=== PATIENT | female | born 1995 | race Caucasian/White ===

== ENCOUNTER 2016-08-02 18:48 | Emergency (ER) | payer OTHER ==
[~2016-08-02] VITALS: Ht 154.9 cm; Wt 270.0 kg
[2016-08-02 19:09] VITALS: BP 146/102; PULSE 83; RESP 16; O2SAT 99
--- NOTE | 2016-08-02 19:57 | ED.REPORT ---
HPI-Back Pain Under 40 Date of Service Aug 02, 2016 ED Provider: Frank Manuel DO Patient is a 21 year old female with a history of chronic back pain who presents to the ED complaining of low back pain onset July 22. Patient reports that back pain is a recurrent issue for her and she denies recent injury or trauma to her back. She states that the pain was initially present on the right side of her back but is now most prominent in the center The patient was seen by her PCP on July 27, with normal urinalysis and pelvic exam at that time. She reports associated fatigue but denies numbness or tingling on her extremities, bowel or bladder incontinence, or any other pain. Nursing Notes Stated Complaint: LOWER BACK PAIN Chief Complaint: Back Pain or Injury Nursing Notes Reviewed: Yes Allergies: Coded Allergies: No Known Allergies (Unverified , 08/01/15) General Time Seen by MD: 19:56 Chief Complaint Back pain Hx Obtained From: Patient Arrived By: Walk-in Sudden in Onset?: No Onset Occurred: More than a week ago... (since July 22) Symptom Duration: Since onset Location: : Generalized Quality: Painful Severity: Maximum: Severe Recent Healthcare: No recent doctor visit, No recent hospitalization Similar Sx Previous: Yes Past Medical History Past Medical History chronic back pain Past Surgical History none reported Smoking History Unknown if Ever Smoker Social History none reported Other Social History: Good social support, Local resident Ambulatory Status Independent Review of Systems Constitutional: Reports: Fatigue Female: Denies: Incontinence Musculoskeletal: Reports: Back pain, Denies: Extremity pain Neurologic: Denies: Bladder dysfunction, Bowel dysfunction, Numbness, Weakness Complete sys rev & neg: except as marked. Physical Exam Initial Vital Signs Vital Signs (First) Date Time Temp Pulse Resp B/P Pulse Ox O2 Delivery O2 Flow Rate FiO2 08/02/16 19:09 36.8 83 16 146/102 99 Room Air Initial VS: Reviewed Neck: Supple, Non-tender, Full range of motion Abdomen / GI: Soft, Non-tender Extremities: Vascular intact, Neuro intact Skin: Warm, Dry, No cyanosis Psychiatric: Mood/affect normal, Behavior normal, Normal thought content General/Constitutional: Awake, Alert, No acute distress Appearance / Presentation: Positive: Obese Back: Atraumatic, Non-tender, No midline vertebral tend, No paraspinal tenderness Neurologic: Oriented X3, Speech NL, No motor deficits, No sensory deficits, Reflexes equal bilat Respiratory / Chest: No respiratory distress, No stridor Cardiovascular: Heart rate NL Interpretation & Diagnostics Interpretation & Diagnostics: Urine Dip: Negative Urine : Negative Lab Results Interpretation Test 08/02/16 20:28 Hold Urine Received (Received) X-Ray Interpretation Xray Interpretation: IMPRESSION: Source of pain is not seen. The lumbosacral spine appears normal for age. Dictated by: Ashkan Kidd M.D. on 08/02/2016 at 21:37 Approved by: Ashkan Kidd M.D. on 08/02/2016 at 21:38 Study Performed: XR Lumbar Spine Interpretation / Wet Read by: Interpret - Radiologist Re-Eval/Medical Decision Source of Hx: Old records Re-Evaluation/Progress #1: Time of Eval: 20:34 Patient Status: Condition improved Re-Evaluation/Progress Note: Rechecked the patient. Her urine was normal and she is not . She is frusterated because she continues to experience back pain. Will take x-rays, with plan for PCP to order an outpatient MRI. Re-Evaluation/Progress #2: Time of Eval: 21:47 Patient Status: Condition improved Re-Evaluation/Progress Note: X-rays were negative. Patient understands and agrees with the plan to be discharged home. Discharge instructions and follow-up discussed. All questions were addressed. Return to the ED warnings given. Counseled Regarding: Diagnosis, Need for follow-up, When/why to return to ED Discharge & Departure Impression: Primary Impression: Low back pain Chronicity: acute Back pain laterality: right Sciatica presence: with sciatica Sciatica laterality: sciatica of right side Qualified Code: M54.41 - Lumbago with sciatica, right side Disposition: Home All VS Reviewed: Yes Condition: Stable Patient Instructions: Lumbar Radiculopathy (ED), Acute Low Back Pain (ED) Additional Instructions: Take it easy for a few days. Do not lift more than 10 pounds for the next 3 days. Take Motrin 600 mg every 8 hours as needed for moderate pain. Take Percocet 1-2 every 6 hours as needed for severe pain. Do not drive or drink alcohol, or consumption acetaminophen while taking the Percocet. Read the aftercare instructions given. If you have any increasing pain, loss of bowel or bladder control, urine retention, or leg weakness come right back to the emergency department. Set up a follow-up her primary care physician for the next 5-7 days. Return if any problems. Referrals: Eleni Rocha (PCP) Mikalaibdaniel Attestation Portions of this note were transcribed by Romelia Orellana. I, Dr. Manuel personally performed the history, physical exam and medical decision-making; I reviewed and confirmed the accuracy of the information in the transcribed note. Signed by: Susie Justice, 08/02/2016 [id number] copies to: Eleni Rocha Todd P DO Aug 02, 2016 19:57 Romelia Orellana Aug 02, 2016 20:13
[2016-08-02 20:34] VITALS: PULSE 92; RESP 16; O2SAT 96
[2016-08-02] MEDS ORDERED: _oxyCODONE/APAP 5-325 mg Tablet PO PRN (20:40)
--- NOTE | 2016-08-02 21:39 | DRSVH ---
PROCEDURE: X-RAY LUMBAR SPINE, 2 OR 3 VIEW INDICATIONS: low back pain TECHNIQUE: 3 views of the lumbar spine were acquired. COMPARISON: None. FINDINGS: Bones: 5 [id number] vertebrae are present. There is normal bony alignment. No vertebral body compression fractures. No suspicious bony lesions. Soft tissues: Overlying bowel gas pattern is normal. No suspicious soft tissue calcifications. IMPRESSION: Source of pain is not seen. The lumbosacral spine appears normal for age. Dictated by: Ashkan Kidd M.D. on 08/02/2016 at 21:37 Approved by: Ashkan Kidd M.D. on 08/02/2016 at 21:38
== END 2016-08-02 21:49 | disposition home or self-care (01) ==
LOC: SED 18:48
DX: M54.41 Lumbago with sciatica, right side (principal)